=== PATIENT | female | born 1980 | race Two or more races ===

== ENCOUNTER 2024-04-25 10:45 | Emergency (ER) | payer MEDICAID, SELFPAY ==
--- NOTE | 2024-04-25 11:24 | XR_ITS ---
Examination: CT abdomen and pelvis without contrast. Coronal 3-D reconstructions. Sagittal 2-D reconstructions. Date and time of exam:April 25, 2024 1301 hrs. Indications: Generalized abdominal pain with nausea vomiting today, history gastric bypass CTDI: vol (mGy): 10.3 DLP: (mGycm): 567 Technique: Axial images of the abdomen have been obtained, 3 mm slice thickness Intravenous contrast material has not been administered. Low dose protocols were performed. One or more of the following dose reduction techniques were used; automated exposure control, adjustment of the mA and/or KV according to patient size, use of iterative reconstruction technique. Findings: Small low-density areas in the liver subcentimeter most likely cystitis Fatty liver infiltration Absent gallbladder Gastric sutures Spleen not enlarged No pancreatic mass Common bile duct measures 6 mm No renal or ureteral calculi, no hydronephrosis Aorta normal size Normal appendix No bowel obstruction No diverticulitis Anteverted uterus Urinary bladder intact Severe thoracolumbar dextroscoliosis Advanced disc and posteriorly L5-S1 Impression: No renal or ureteral calculi, no hydronephrosis Normal appendix No bowel obstruction diverticulitis or free air
--- NOTE | 2024-04-25 11:24 | EKG_ITS ---
[facility] Test Date: 2024-04-25 Pat Name: MALATHI MTZ Department: Room: - Gender: Female Through Operator: : 1980 Requested By: Joey Wakefield Order Number: [id number] Reading MD: Joey Wakefield Measurements Intervals [place] Rate: 85 P: 65 NM: 168 QRS: 51 QRSD: 85 T: 56 QT: 410 QTc: 488 Interpretive Statements SINUS RHYTHM WITH MARKED SINUS ARRHYTHMIA No previous ECG available for comparison /store/S0/[id number]/[id number]
--- NOTE | 2024-04-25 11:26 | PD.EDADULT ---
ED General RME/HPI General Chief complaint: Nausea/Vomiting/Diarrhea Stated complaint: VOMITING Time Seen by Provider: 04/25/24 11:24 Arrival date/time: 04/25/24 10:45 CC: Abdominal pain nausea vomiting HPI ongoing for the past 2 days. The patient has a significant history for gastric bypass and severe scoliosis patient is on 12/02/2024 narcotic medication every 6 hours chronically. Patient denies any diarrhea chest pain or shortness of breath. Related Data Home Medications ?Medication ?Instructions ?Recorded ?Confirmed tramadol 50 mg tablet 50 mg PO QID 08/17/17 12/04/18 dicyclomine 20 mg tablet 20 mg PO TID 12/04/18 12/04/18 ondansetron HCl 4 mg tablet 4 mg PO TID PRN Nausea 12/04/18 12/04/18 (Zofran) Previous Rx's ?Medication ?Instructions ?Recorded prochlorperazine 25 mg rectal [address] Q12H PRN nausea and 12/04/18 suppository (Compazine) vomiting #12 ea Allergies Allergy/AdvReac Type Severity Reaction Status Date / Time amoxicillin Allergy Mild Hives Verified 12/04/18 11:01 morphine Allergy Mild Nausea Verified 12/04/18 11:01 Penicillins Allergy Unknown Verified 12/04/18 11:01 Sulfa (Sulfonamide Allergy Unknown Verified 12/04/18 11:01 Antibiotics) POTASSIUM CLAVULANATE Allergy Mild Vomiting Uncoded 12/04/18 11:01 Review of Systems Review of Systems Narrative Review of Systems: GEN: No fever, no chills, no weight loss EYES: No discharge, no visual changes, no pain HEENT: No ear pain, no congestion, no sore throat PULM: No shortness of breath, no cough, no congestion CV: No chest pain, no dyspnea on exertion, no palpitations GI: No nausea, no vomiting, no diarrhea, + pain, no constipation : No frequency, no urgency, no dysuria MUSC/SKEL: No joint pain, + back pain SKIN: No rash PSYCH: No hallucinations, no depression HEME/LYMPH: No easy bleeding or bruising tendencies NEURO: No weakness, no headache ED Exam Narrative Physical exam: [General: In moderate discomfort not in any acute distress Head normocephalic HEENT: Within acceptable limits Neck is supple nontender Chest equal chest rise nontender to palpation Respiratory: Clear to auscultation no wheezes crackles or rubs CV: Rate rhythm is regular no murmurs rubs or clicks Abdomen is soft, diffuse tenderness throughout, no masses positive bowel sounds all 4 quadrants Back: No CVA tenderness no spinous process tenderness from cervical spine thoracic and lumbar spine Skin: Intact no petechiae rash induration ulceration or crepitus Extremities: Moving all extremity against resistance cap refill less than 2 seconds neurosensory intact Neuro: Awake alert oriented x3 Glascow coma 15 no focal deficits] Course Quality Measures none Orders Category Date Time Status EKG (ED ONLY) *Do not use* NOW Care 04/25/24 11:24 Active Saline [Insert IV] NOW Care 04/25/24 11:[address] abdomen pelvis wo con Stat Exams 04/25/24 11:24 Completed EKG (ED Only) Stat Exams 04/25/24 11:24 Draft B-Type Natriuretic Peptide Stat Lab 04/25/24 11:30 Completed CBC Stat Lab 04/25/24 11:30 Completed Comprehensive Metabolic Panel Stat Lab 04/25/24 11:30 Completed Drug Screen,Urine Stat Lab 04/25/24 14:09 Completed HCG,Qualitative Serum Stat Lab 04/25/24 11:39 Completed Lipase Stat Lab 04/25/24 11:30 Completed Magnesium Stat Lab 04/25/24 11:30 Completed Partial Thromboplastin Time Stat Lab 04/25/24 11:30 Completed Prothrombin Time with INR Stat Lab 04/25/24 11:30 Completed Urinalysis Stat Lab 04/25/24 14:09 Completed HYDROcodone/APAP 10/325 [[place] 10/325] Med 04/25/24 13:37 Discontinued 1 tab PO X1 ONE HYDROmorphone INJ [Dilaudid Inj] Med 04/25/24 11:24 Discontinued 1 mg IVP X1 ONE HYDROmorphone INJ [Dilaudid Inj] Med 04/25/24 15:16 Once 1 mg IVP X1 ONE Ondansetron Inj [Zofran Inj] Med 04/25/24 11:24 Discontinued 4 mg IV X1 ONE Sodium Chloride 0.9% 1000 ml [Ns] 1,000 ml Med 04/25/24 11:25 Discontinued IV 999 mls/hr hydrALAZINE INJ [Apresoline Inj] Med 04/25/24 11:29 Discontinued 10 mg IV X1 ONE Vital Signs Vital signs: Vital Signs Pulse Rate 88 04/25/24 11:37 Blood Pressure 183/117 H 04/25/24 11:37 [facility] Patient data External records reviewed:: [facility] previous records and EMS form Clinical information provided by:: patient and EMS Social determinants that could affect healthcare access:: none Patient has the following chronic illnesses:: Gastric bypass, scoliosis How is presenting disease/condition affected by chronic disease/condition?: caused by Evaluation data The following diagnostics were reviewed and interpreted by me:: lab results, radiology exam(s) and EKG tracing(s) Lab and/or radiology exams considered but not ordered:: EKG performed at 1457 shows a ventricular rate of 85 CT interval 168 QRS of 8 5 QTc of 452 this is sinus rhythm. CBC shows no acute leukocytosis anemia thrombocytopenia CMP shows no electrolyte imbalances renal impairment transaminitis or T. bili elevation Coags within acceptable limits BMP at 109 Troponin is negative Urine is negative for UTI UDS is positive for opiates methamphetamines benzos and marijuana CT is unremarkable for any acute finding that requires emergent or immediate intervention. Interpretation Summary: Chronic abdominal pain with no acute finding, the patient states she takes Adderall and therefore is methamphetamine positive. The patient has had multiple doses of pain medication and now is complaining of back pain knowing that she has severe scoliosis and why she is on chronic pain medications. Medications Medications considered but not ordered:: None Medication administrations:: Medication Administration History Discontinued Medications Hydrocodone Bitart/Acetaminophen (Hydrocodone/Apap 10/325 Tab) 1 tab PO X1 ONE Stop: 04/25/24 13:38 Last Admin: 04/25/24 14:15 Dose: 1 tab Documented By: SHANIQUA Hydralazine HCl (Hydralazine Inj 20 Mg/Ml Vial) 10 mg IV X1 ONE Stop: 04/25/24 11:30 Last Admin: 04/25/24 11:37 Dose: 10 mg Documented By: MP Hydromorphone HCl (Hydromorphone Inj 2 Mg/Ml Vial) 1 mg IVP X1 ONE Stop: 04/25/24 11:25 Last Admin: 04/25/24 11:36 Dose: 1 mg Documented By: SHANIQUA Sodium Chloride (Ns) 1,000 mls @ 999 mls/hr IV .Q1H1M ONE Stop: 04/25/24 12:25 Last Infusion: 04/25/24 13:00 Dose: Infused Documented By: Admin: 04/25/24 11:33 Dose: 999 mls/hr Documented By: SHANIQUA Ondansetron HCl (Ondansetron Inj 2 Mg/Ml Inj 2 Ml) 4 mg IV X1 ONE; Protocol Stop: 04/25/24 11:25 Last Admin: 04/25/24 11:36 Dose: 4 mg Documented By: SHANIQUA None Consultations Consultation(s) initiated? (list below): No Diagnosis Differential Diagnosis ED Complaint MDM: Chronic abdominal pain methamphetamine abuse ileus obstruction Most likely diagnosis given after review of the tests above:: Chronic abdominal pain methamphetamine abuse Admission Indicated Admission indicated?: not indicated Explain why admission is indicated or not indicated:: Stable for discharge Admission Request Was there a request for admission?: No Disposition Plan Disposition Plan: Discharge Discharge Attestation Discharge Attestation: The patient and all family members were given an opportunity to ask questions and understood the discharge instructions. Discharge instructions specifically effects, indications for sooner follow up or return to the emergency department, and the expected course of current diagnosis. Patient condition: Stable Medical Decision Making Differential Diagnosis Differential Diagnosis: Chronic abdominal pain methamphetamine abuse ileus obstruction Lab Data 04/25/24 11:30 04/25/24 11:30 Labs: Lab Results 04/25/24 04/25/24 04/25/24 Range/Units 11:30 11:39 14:09 WBC 9.9 (3.6-11.0) Thou/mm3 RBC 5.21 H (4.00-5.20) Miln/mm3 Hgb 13.0 (12.0-16.0) g/dL Hct 40.7 (36.0-46.0) % MCV 78 L (80-100) fL MCH 25.0 (25.0-35.0) pg MCHC 31.9 (31.0-37.0) g/dl RDW Std Deviation 44.4 (36.4-46.3) fL Plt Count 330 (140-440) Thou/mm3 Neut % (Auto) 90 H (37-80) % Lymph % (Auto) 7 L (10-50) % [place] % (Auto) 3 (0-12) % Eos % (Auto) 0 (0-10) % Baso % (Auto) 0 (0-2.5) % Neut # (Auto) 8.8 H (1.8-7.7) Thou/mm3 Lymph # (Auto) 0.7 L (1.0-4.8) Thou/mm3 [place] # (Auto) 0.3 (0.0-0.8) Thou/mm3 Eos # (Auto) 0.0 (0.0-0.5) Thou/mm3 Baso # (Auto) 0.0 (0.0-0.2) Thou/mm3 Immature Gran # (Auto) 0.02 H (0.00-0.00) Thou/mm3 Absolute Nucleated RBC 0.00 (0.00-0.00) Thou/mm3 Immature Gran % 0 (0-0) % Nucleated RBC % 0 (0) /100 WBC PT 11.2 (9.0-12.2) Seconds INR 1.0 (0.9-1.3) APTT 26.8 (22.0-36.0) Seconds Sodium 136 (136-145) mMol/L Potassium 3.5 (3.4-5.1) mMol/L Chloride 98 (98-107) mMol/L Carbon Dioxide 26.5 (20.0-31.0) mMol/L Anion Gap 12 (7-16) BUN 11 (9-23) mg/dL Creatinine 0.6 (0.6-1.3) mg/dL Estim Creat Clear Calc 123.4 (>60) mL/min eGFR > 60 (60 - ) See Note BUN/Creatinine Ratio 18 (12-20) Ratio Glucose 136 H (74-106) mg/dL Calculated Osmolality 273 L (275-295) Calcium 9.6 (8.3-10.6) mg/dL Corrected Calcium 9.6 (8.5-10.1) mg/dL Magnesium 1.8 (1.6-2.6) mg/dL Total Bilirubin 0.8 (0.3-1.2) mg/dL AST 25 (0-34) U/L ALT 19 (10-49) U/L Alkaline Phosphatase 105 (46-116) U/L B-Natriuretic Peptide 109 H (0-100) pg/mL Total Protein 8.5 H (5.7-8.2) gm/dL Albumin 5.2 H (3.5-5.0) gm/dL Globulin 3.3 (2.3-3.5) gm/dL Albumin/Globulin Ratio 1.6 (1.2-2.2) Lipase 33 (12-53) U/L HCG, Qual Negative Ur Collection Type Clean Catch Urine Color Lt-Yellow (Lt Yel-Yel) Urine Clarity Clear (Clear/Hazy) Urine pH 7.0 (5.0-7.0) Ur Specific [place] 1.018 (1.001-1.035) Urine Protein 1+ A (Neg - Trace) Urine Glucose (UA) 2+ A (Negative) Urine Ketones 3+ A (Negative) Urine Blood 3+ A (Negative) Urine Nitrite Negative (Negative) Urine Bilirubin Negative (Negative) Urine Urobilinogen (Auto) Negative (0.0-1.0) mg/dL Ur Leukocyte Esterase Negative (Negative) Urine RBC 1 (0-3) /hpf Urine WBC < 1 (0-5) /hpf Ur Squamous Epith Cells 2 (0-5) /hpf Urine Bacteria None (None) Urine Opiates Screen Positive A (Negative) Urine Fentanyl Screen Negative (Negative) Ur Barbiturates Screen Negative (Negative) U Amphetamin/Meth Scrn Positive A (Negative) U Benzodiazepines Scrn Positive A (Negative) U Cocaine Metab Screen Negative (Negative) U Marijuana (THC) Screen Positive A (Negative) Discharge Plan Plan Patient Disposition: HOME (Self Care) Patient condition on transfer: Stable Prescriptions/Referrals Prescriptions/Med Rec: No Action tramadol 50 mg Tablet 50 mg PO QID ondansetron HCl [Zofran] 4 mg Tablet 4 mg PO TID PRN (Reason: Nausea) dicyclomine 20 mg Tablet 20 mg PO TID prochlorperazine [Compazine] 25 mg suppository [address] Q12H PRN (Reason: nausea and vomiting) Qty: 12 0RF Referrals: Nando King MD [Physician] - In 1 week No Primary/Family,Physician [Primary Care Provider] - In 1 week Problem List Clinical Impression: Abdominal pain, chronic, generalized Patient/Caregiver Discharge Instructions Education Materials: Abdominal Pain Additional Instructions: Follow-up with primary care provider Print Language: Guinean Stand Alone Forms: [employer] Award Info., Work/School Release, Patient Portal Info Letter PA/LOFT WORKER PILE DRIVING Supervising Physician LILIYA/MANISH Supervising Physician: Joey Ortiz ENP
[2024-04-25] MEDS: SODIUM CHLORIDE 0.9% 1000 ML 1,000 ML 999 ML IV (11:33)
[2024-04-25] MEDS: ONDANSETRON INJ 2 MG/ML INJ 2 ML 4 MG IV (11:36)
[2024-04-25] MEDS: HYDROmorphone INJ 2 MG/ML VIAL 1 MG IVP ×2 (11:36→15:29)
[2024-04-25 11:37] VITALS: BP 183/117; PULSE 88
[2024-04-25] MEDS: hydrALAZINE INJ 20 MG/ML VIAL 10 MG IV (11:37)
[2024-04-25 11:41] VITALS: BMI 31.1
[2024-04-25 11:45] VITALS: PULSE 76; RESP 20; O2SAT 98
[2024-04-25 11:47] VITALS: BP 183/117; RESP 32; TEMP 36.8; O2SAT 99
[2024-04-25 11:51] LABS: Basophils % (Auto) 0 % (0-2.5); Eosinophils % (Auto) 0 % (0-10); Hematocrit 40.7 % (36.0-46.0); Immature Granulocytes % (Auto) 0 % (0-0); Immature Granulocytes Auto 0.02 Thou/mm3 (0.00-0.00); Lymphocytes # (Auto) 0.7 Thou/mm3 (1.0-4.8); Lymphocytes % (Auto) 7 % (10-50); Mean Corpuscular HGB Conc 31.9 g/dl (31.0-37.0); Mean Corpuscular Volume 78 fL (80-100); Monocytes # (Auto) 0.3 Thou/mm3 (0.0-0.8); Monocytes % (Auto) 3 % (0-12); Neutrophils # (Auto) 8.8 Thou/mm3 (1.8-7.7); Neutrophils % (Auto) 90 % (37-80); Nucleated Red Blood Cell % 0 /100 WBC (0); Platelet Count 330 Thou/mm3 (140-440); RDW Standard Deviation 44.4 fL (36.4-46.3); Red Blood Count 5.21 Miln/mm3 (4.00-5.20); White Blood Count 9.9 Thou/mm3 (3.6-11.0)
[2024-04-25 12:11] LABS: Partial Thromboplastin Time 26.8 Seconds (22.0-36.0); Prothrombin Time 11.2 Seconds (9.0-12.2)
[2024-04-25 12:13] LABS: B-Type Natriuretic Peptide 109 pg/mL (0-100)
[2024-04-25 12:15] LABS: Alanine Aminotransferase 19 U/L (10-49); Albumin, Serum 5.2 gm/dL (3.5-5.0); Albumin/Globulin Ratio 1.6 (1.2-2.2); Alkaline Phosphatase 105 U/L (46-116); Anion Gap 12 (7-16); Aspartate Amino Transferase 25 U/L (0-34); BUN/Creatinine Ratio 18 Ratio (12-20); Bilirubin,Total 0.8 mg/dL (0.3-1.2); Blood Urea Nitrogen 11 mg/dL (9-23); Calcium 9.6 mg/dL (8.3-10.6); Calcium (Corrected) 9.6 mg/dL (8.5-10.1); Carbon Dioxide 26.5 mMol/L (20.0-31.0); Chloride 98 mMol/L (98-107); Creatinine (Component) 0.6 mg/dL (0.6-1.3); Estimated Creatinine Clearance 123.4 mL/min (>60); Globulin 3.3 gm/dL (2.3-3.5); Glucose 136 mg/dL (74-106); Lipase 33 U/L (12-53); Magnesium 1.8 mg/dL (1.6-2.6); Osmolality,Calculated 273 (275-295); Potassium 3.5 mMol/L (3.4-5.1); Sodium 136 mMol/L (136-145); Total Protein 8.5 gm/dL (5.7-8.2); eGFR > 60 See Note
[2024-04-25 12:31] LABS: HCG,Qualitative Serum Negative
[2024-04-25 12:50] VITALS: BP 155/90
[2024-04-25 14:12] VITALS: BP 124/73; RESP 20; O2SAT 100
[2024-04-25] MEDS: HYDROcodone/APAP 10/325 TAB PO (14:15)
[2024-04-25 14:24] LABS: Collection Type, Urine Clean Catch
[2024-04-25 14:49] LABS: Bilirubin,Urine Negative (Negative); Blood,Urine 3+ (Negative); Clarity,Urine Clear (Clear/Hazy); Color,Urine Lt-Yellow (Lt Yel-Yel); Glucose, Urine 2+ (Negative); Ketones,Urine 3+ (Negative); Leukocyte Esterase,Urine Negative (Negative); Nitrite,Urine Negative (Negative); Protein,Urine 1+ (Neg - Trace); RBC,Urine 1 /hpf (0-3); Specific Gravity,Urine 1.018 (1.001-1.035); Squamous Epithelial Cell,Urine 2 /hpf (0-5); Urobilinogen,Urine Negative mg/dL (0.0-1.0); WBC,Urine < 1 /hpf (0-5)
[2024-04-25 14:53] LABS: Amphetamine/Methamp Scrn,U Positive (Negative); Barbiturate Screen,Urine Negative (Negative); Benzodiazepines Screen,Urine Positive (Negative); Benzoylecgonine Screen, Ur Negative (Negative); Fentanyl Screen,Urine Negative (Negative); Opiate Screen,Urine Positive (Negative); THC Screen,Urine Positive (Negative)
== END 2024-04-25 15:35 | disposition home or self-care (01) ==
PROVIDERS: Registered Nurse General Practice; Emergency Provider Emergency Medicine
DX: R10.84 Generalized abdominal pain (principal); I49.8 Other specified cardiac arrhythmias; M41.9 Scoliosis, unspecified; Z98.84 Bariatric surgery status
CPT/HCPCS: 36415; 74176; 80053; 80307; 81001; 83690; 83735; 83880; 84703; 85025; 85610; 85730; 93005; 96361; 96374; 96375; 99284; J0360; J2405; J3490; J7030; A9270

== ENCOUNTER 2024-07-11 06:14 | Emergency (ER) | payer MEDICAID, SELFPAY ==
[2024-07-11 06:28] VITALS: PULSE 80; RESP 18; O2SAT 98
[2024-07-11 06:37] VITALS: BP 129/82; PULSE 128; RESP 19; TEMP 36.8; O2SAT 96
--- NOTE | 2024-07-11 06:44 | EKG_ITS ---
[facility] Test Date: 2024-07-11 Pat Name: MALATHI MTZ Department: Room: - Gender: Female Chair Trimmer: : 1980 Requested By: Otis Encinas Order Number: [id number] Reading MD: Otis Encinas Measurements Intervals [place] Rate: 121 P: 71 ND: 154 QRS: -78 QRSD: 77 T: 57 QT: 321 QTc: 456 Interpretive Statements SINUS TACHYCARDIA LEFT ANTERIOR FASCICULAR BLOCK [QRS AXIS <= -45, QR IN I, RS IN II] Compared to ECG 04/25/2024 14:57:20 Left anterior fascicular block now present Sinus rhythm no longer present Sinus arrhythmia no longer present /store/S0/[id number]/ecg/[id number]
--- NOTE | 2024-07-11 06:54 | PD.EDRME ---
Rapid Medical Screening Exam RME Arrival date/time: 07/11/24 06:14 43-year-old female with a history of scoliosis, anxiety presents to the emergency room with a chief complaint of an acute panic attack, patient states she smoked marijuana wax and states that she is confused, dizzy, lightheaded and does not feel right. I have greeted and performed a focused initial assessment of this patient. A comprehensive ED assessment and evaluation of the patient, analysis of all test results, and completion of the medical decision making process will be conducted by additional ED providers. Chief Complaint: Anxiety Time Seen by Provider: 07/11/24 06:40 Vital signs: Vital Signs Temperature 98.3 F 07/11/24 06:37 Pulse Rate 128 H 07/11/24 06:37 Respiratory Rate 19 07/11/24 06:37 Blood Pressure 129/82 07/11/24 06:37 Pulse Oximetry (%) 96 07/11/24 06:37 Oxygen Delivery Method Room Air 07/11/24 06:37 Vital signs reviewed by provider: Yes
[2024-07-11 07:25] LABS: Basophils % (Auto) 0 % (0-2.5); Eosinophils % (Auto) 0 % (0-10); Hematocrit 40.4 % (36.0-46.0); Hemoglobin 13.5 g/dL (12.0-16.0); Immature Granulocytes % (Auto) 1 % (0-0); Immature Granulocytes Auto 0.09 Thou/mm3 (0.00-0.00); Lymphocytes # (Auto) 1.1 Thou/mm3 (1.0-4.8); Lymphocytes % (Auto) 7 % (10-50); Mean Corpuscular HGB Conc 33.4 g/dl (31.0-37.0); Mean Corpuscular Hemoglobin 25.4 pg (25.0-35.0); Mean Corpuscular Volume 76 fL (80-100); Monocytes # (Auto) 1.1 Thou/mm3 (0.0-0.8); Monocytes % (Auto) 7 % (0-12); Neutrophils # (Auto) 13.3 Thou/mm3 (1.8-7.7); Neutrophils % (Auto) 85 % (37-80); Nucleated Red Blood Cell % 0 /100 WBC (0); Platelet Count 415 Thou/mm3 (140-440); RDW Standard Deviation 42.4 fL (36.4-46.3); Red Blood Count 5.32 Miln/mm3 (4.00-5.20); White Blood Count 15.7 Thou/mm3 (3.6-11.0)
[2024-07-11 07:46] LABS: Alanine Aminotransferase 21 U/L (10-49); Albumin, Serum 5.4 gm/dL (3.5-5.0); Albumin/Globulin Ratio 1.7 (1.2-2.2); Alcohol, Blood Medical < 3.0 mg/dL (0-10.0); Alkaline Phosphatase 98 U/L (46-116); Anion Gap 15 (7-16); Aspartate Amino Transferase 28 U/L (0-34); BUN/Creatinine Ratio 11 Ratio (12-20); Bilirubin,Total 1.2 mg/dL (0.3-1.2); Blood Urea Nitrogen 11 mg/dL (9-23); Calcium 9.7 mg/dL (8.3-10.6); Calcium (Corrected) 9.7 mg/dL (8.5-10.1); Carbon Dioxide 21.8 mMol/L (20.0-31.0); Chloride 96 mMol/L (98-107); Globulin 3.2 gm/dL (2.3-3.5); Glucose 114 mg/dL (74-106); Magnesium 2.3 mg/dL (1.6-2.6); Osmolality,Calculated 266 (275-295); Potassium 3.3 mMol/L (3.4-5.1); Sodium 133 mMol/L (136-145); Total Protein 8.6 gm/dL (5.7-8.2); Troponin I 0.025 ng/mL (0.0-0.045); eGFR > 60 See Note
[2024-07-11 08:05] LABS: B-Type Natriuretic Peptide 126 pg/mL (0-100)
[2024-07-11 10:23] LABS: Collection Type, Urine Clean Catch
[2024-07-11 11:20] LABS: Bilirubin,Urine 1+ (Negative); Blood,Urine Negative (Negative); Clarity,Urine Turbid (Clear/Hazy); Color,Urine Yellow (Lt Yel-Yel); Glucose, Urine Trace (Negative); Granular Casts,Urine < 1 /hpf (0-1); Hyaline Casts,Urine 1 /hpf (0-1); Ketones,Urine 2+ (Negative); Leukocyte Esterase,Urine Negative (Negative); Nitrite,Urine Negative (Negative); Protein,Urine 2+ (Neg - Trace); RBC,Urine < 1 /hpf (0-3); Specific Gravity,Urine 1.021 (1.001-1.035); Squamous Epithelial Cell,Urine 2 /hpf (0-5); Transitional Epi Cells,Urine 1 /hpf (0-5); Urobilinogen,Urine Negative mg/dL (0.0-1.0); WBC,Urine 4 /hpf (0-5)
--- NOTE | 2024-07-11 11:25 | EDNOTE_ITS ---
ED General RME/HPI General Chief complaint: Anxiety Stated complaint: ANXIETY Time Seen by Provider: 07/11/24 06:40 Arrival date/time: 07/11/24 06:14 CC: Panic attack HPI patient admits that she smokes marijuana wax which she had not done before which made her dizzy lightheaded. Patient denies chest pain shortness of breath or difficulty breathing. The time of the exam at 11:25 AM. The patient is much more responsive and not anxious, no slurred words awake alert and oriented. Heart rate has decreased into the 1 teens. Patient denies chest pain shortness of breath or difficulty breathing. RME / HPI RME / HPI narrative: 07/11/24 06:14 43-year-old female with a history of scoliosis, anxiety presents to the emergency room with a chief complaint of an acute panic attack, patient states she smoked marijuana wax and states that she is confused, dizzy, lightheaded and does not feel right. I have greeted and performed a focused initial assessment of this patient. A comprehensive ED assessment and evaluation of the patient, analysis of all test results, and completion of the medical decision making process will be conducted by additional ED providers. Related Data Home Medications ?Medication ?Instructions ?Recorded ?Confirmed tramadol 50 mg tablet 50 mg PO QID 08/17/17 dicyclomine 20 mg tablet 20 mg PO TID 12/04/18 ondansetron HCl 4 mg tablet 4 mg PO TID PRN Nausea 07/1812/04/18 (Zofran) Previous Rx's ?Medication ?Instructions ?Recorded prochlorperazine 25 mg rectal 25 mg MD Q12H PRN nausea and 12/04/18 suppository (Compazine) vomiting #12 ea ondansetron HCl 4 mg tablet 4 mg PO QDAY #14 tabs 04/03 06/24 Allergies Allergy/AdvReac Type Severity Reaction Status Date / Time amoxicillin Allergy Mild Hives Verified 12/04/18 11:01 morphine Allergy Mild Nausea Verified 12/04/18 11:01 Penicillins Allergy Unknown Verified 12/04/18 11:01 Sulfa (Sulfonamide Allergy Unknown Verified 12/04/18 11:01 Antibiotics) POTASSIUM CLAVULANATE Allergy Mild Vomiting Uncoded 12/04/18 11:01 Review of Systems Review of Systems Narrative Review of Systems: GEN: No fever, no chills, no weight loss EYES: No discharge, no visual changes, no pain HEENT: No ear pain, no congestion, no sore throat PULM: No shortness of breath, no cough, no congestion CV: No chest pain, no dyspnea on exertion, no palpitations GI: No nausea, no vomiting, no diarrhea, no pain, no constipation : No frequency, no urgency, no dysuria MUSC/SKEL: No joint pain, no back pain SKIN: No rash PSYCH: No hallucinations, no depression HEME/LYMPH: No easy bleeding or bruising tendencies NEURO: No weakness, no headache Past Medical History Past Medical History CARDIAC: Positive Heart Murmur; Negative Cardiac Disorders or Congestive Heart Failure RESPIRATORY: Negative Chronic Obstructive Pulmonary Disease (COPD) or Asthma GASTROINTESTINAL: Positive Gastrointestinal Disorders GENITOURINARY: Negative Renal Disease MUSCULOSKELETAL: Positive Musculoskeletal Disorders and Scoliosis ENDOCRINE: Negative Diabetes Mellitus Type 1 or Diabetes Mellitus Type 2 HEMATOLOGIC: Negative Sickle Cell Disease PSYCHO/SOCIAL: Positive Anxiety OTHER HISTORY: Positive MRSA Surgical History SURGICAL: Positive Abdominal Surgery, Gastric Bypass Surgery and Bowel Surgery Social History SMOKING STATUS: Never smoker SUBSTANCE USE: does not use ED Exam Narrative Physical exam: [General: Anxious but not in any acute distress Head normocephalic HEENT: Within acceptable limits Neck is supple nontender Chest equal chest rise nontender to palpation Respiratory: Clear to auscultation no wheezes crackles or rubs CV: Rate rhythm is regular, tachycardic, no murmurs rubs or clicks Abdomen is distended secondary to body habitus soft nontender no masses positive bowel sounds all 4 quadrants Back: No CVA tenderness no spinous process tenderness from cervical spine thoracic and lumbar spine Skin: Intact no petechiae rash induration ulceration or crepitus Extremities: Moving all extremity against resistance cap refill less than 2 seconds neurosensory intact Neuro: Awake alert oriented x3 Glascow coma 15 no focal deficits] Course Course Course Narrative: Patient is awake and alert and comfortable discharging this patient home patient strongly advised to avoid all marijuana for the time being and follow-up with the primary care provider Quality Measures none Orders Category Date Time Status EKG (ED ONLY) *Do not use* NOW Care 07/11/24 06:44 Completed EKG (ED Only) Stat Exams 07/11/24 06:44 Draft Alcohol, Blood Medical Stat Lab 07/11/24 07:04 Completed B-Type Natriuretic Peptide Stat Lab 07/11/24 07:04 Completed CBC Stat Lab 07/11/24 07:04 Completed Comprehensive Metabolic Panel Stat Lab 07/11/24 07:04 Completed Drug Screen,Urine Stat Lab 07/11/24 10:19 Received Magnesium Stat Lab 07/11/24 07:04 Completed Troponin I Stat Lab 07/11/24 07:04 Completed Urinalysis Stat Lab 07/11/24 10:19 Received Vital Signs Vital signs: Vital Signs Temperature 98.3 F 07/11/24 06:37 Pulse Rate 128 H 07/11/24 06:37 Respiratory Rate 19 07/11/24 06:37 Blood Pressure 129/82 07/11/24 06:37 Pulse Oximetry (%) 96 07/11/24 06:37 Oxygen Delivery Method Room Air 07/11/24 06:37 Discharge Plan Plan Patient Disposition: HOME (Self Care) Patient condition on transfer: Stable Prescriptions/Referrals Prescriptions/Med Rec: No Action tramadol 50 mg Tablet 50 mg PO QID ondansetron HCl [Zofran] 4 mg Tablet 4 mg PO TID PRN (Reason: Nausea) dicyclomine 20 mg Tablet 20 mg PO TID prochlorperazine [Compazine] 25 mg suppository 25 mg MD Q12H PRN (Reason: nausea and vomiting) Qty: 12 0RF ondansetron HCl 4 mg tablet 4 mg PO QDAY Qty: 14 0RF Referrals: Jessica Mustafa MD [Primary Care Provider] - In 1 week Problem List Clinical Impression: Acute anxiety, Cannabis abuse Patient/Caregiver Discharge Instructions Education Materials: ED Anxiety Reaction, ED Marijuana Abuse Print Language: Eritrean Stand Alone Forms: [employer] Award Info., Work/School Release, Patient Portal Info Letter PA/MULTI SLIDE MACHINE TENDER Supervising Physician PA/MULTI SLIDE MACHINE TENDER Supervising Physician: Joey Ortiz ENP [facility] Clinical Information Provided by: patient and EMS [facility] EKG Interpretation EKG #1: EKG Interpretation: EKG performed at 0 700 shows a ventricular rate of 121 MD interval 154 QRS of 77 QTc of 393 is a sinus tachycardia. Labs Lab(s) Interpretation(s): CBC shows a mild leukocytosis of 15.7 no thrombocytopenia no anemia. CMP shows a sodium 133 potassium 3.3 chloride of 96 glucose of 114 no other electrolyte imbalances no renal impairment transaminitis or T. bili elevation Troponin is negative BNP is mildly elevated at 126
[2024-07-11 11:30] LABS: Amphetamine/Methamp Scrn,U Positive (Negative); Barbiturate Screen,Urine Negative (Negative); Benzodiazepines Screen,Urine Positive (Negative); Benzoylecgonine Screen, Ur Negative (Negative); Fentanyl Screen,Urine Negative (Negative); Opiate Screen,Urine Positive (Negative); THC Screen,Urine Positive (Negative)
[2024-07-11 12:42] VITALS: BP 122/77; PULSE 78
== END 2024-07-11 12:42 | disposition home or self-care (01) ==
PROVIDERS: Nurse Practitioner Family; Emergency Provider Family Medicine; PCP Internal Medicine
DX: F12.180 Cannabis abuse with cannabis-induced anxiety disorder (principal); R00.0 Tachycardia, unspecified; I44.4 Left anterior fascicular block
CPT/HCPCS: 36415; 80053; 80307; 80320; 81001; 83735; 83880; 84484; 85025; 93005; 99283; G0480